=== PATIENT | female | born 1985 | race Caucasian/White ===

== ENCOUNTER 2019-02-24 01:27 | Emergency (ER) | payer OTHER ==
[~2019-02-24] VITALS: Ht 154.9 cm; Wt 104.3 kg
[2019-02-24 01:34] VITALS: Ht 154.9 cm; Wt 104.3 kg
[2019-02-24 03:25] VITALS: BP 138/89
== END 2019-02-24 03:25 | disposition home or self-care (01) ==
LOC: ED 01:27
DX: S93.602A Unspecified sprain of left foot, initial encounter (principal); Z88.1 Allergy status to other antibiotic agents; X58.XXXA Exposure to other specified factors, initial encounter; Y93.89 Activity, other specified; Y92.89 Other specified places as the place of occurrence of the external cause; Y99.8 Other external cause status
CPT/HCPCS: Q0092